=== PATIENT | female | born 1985 | race American Indian/Alaskan Native ===

== ENCOUNTER 2019-08-25 15:15 | Emergency (ER) | payer SELFPAY ==
[2019-08-25 15:24] VITALS: BP 135/92
--- NOTE | 2019-08-25 15:31 | Emergency Department Report ---
Chief Complaint: Urogenital-Female Stated Complaint: DISCHARGE/VAGINAL CHECKUP Time Seen by Provider: 08/25/19 15:25 - HPI History of Present Illness: pt is a 34 yo female who presents with vaginal discharge since 08/22/2019. her cycle just ended on 08/22/2019 and she began feeling the symptoms shortly after. she denies any v/d, fever, no dysuria, no pelvic pain. PMHx none. no allergies to meds. STD hx: trichomonas when she was 17 yo. pt states she is sexually active, partner has STD symptoms as well currently, she had unprotected intercourse. Vitals with mild tachycardia, afebrile, otherwise vitals are normal on exam: Non toxic appearing, no acute distress atraumatic, normocephalic normal appearance of the eyes, PERRL, EOMI, no periorbital edema or ecchymosis moist mucus membranes regular rhythm, no gallops, no rubs, no murmurs breath sounds are clear bilaterally, no w/r/r No abdominal tenderness to palpation, no guarding, no rebound, no distention, no peritoneal signs, normal bowel sounds A&O x4, no focal neuro deficit skin is warm, dry, intact Patient is presenting with vaginal discharge Her partner is experiencing STD-like symptoms and she had unprotected intercourse She is not having fever, pelvic pain, vomiting, diarrhea She has no abdominal tenderness on exam Patient is presenting with a nonmedical emergency at this time, medical screening examination performed and there is no threat to life or limb at this time Patient will be referred to a clinic and the health department for full STD panel and treatment as appropriate Discussed strict return precautions with patient - Exam Vital Signs: Vital Signs 08/25/19 15:23 Temperature 98.0 F Pulse Rate 105 H Respiratory 16 Rate Blood Pressure 135/92 O2 Sat by Pulse 100 Oximetry MSE screening note: Focused history and physical exam performed. ED Disposition for MSE Clinical Impression: Vaginal discharge, Concern about STD in female without diagnosis Disposition: Z- MED SCREENING EXAM-LEFT Is pt being admited?: No Does the pt Need Aspirin: No Condition: Stable Instructions: Sexually Transmitted Diseases (ED), Safe Sex (ED) Additional Instructions: please follow up with a clinic or the health department for a full STD panel and treated as needed. please have partner tested and treated as well. please do not engage in sexual intercourse. return to the emergency room for any new or worsening symptoms. clear medical concepts Address: [address] [place] [address], [place] [address] Referrals: AMISHA SIGALA MD [Staff Physician] - 3-5 Days [facility] [Provider Group] - 3-5 Days [facility] [Outside] - 3-5 Days [facility] [Outside] - 3-5 Days [facility] [Outside] - 3-5 Days Time of Disposition: 15:30 Print Language: SLOVENIAN
== END 2019-08-25 17:46 | disposition left against medical advice (07) ==
LOC: ED 15:15
DX: N89.8 Other specified noninflammatory disorders of vagina (principal); R00.0 Tachycardia, unspecified; Z20.2 Contact with and (suspected) exposure to infections with a predominantly sexual mode of transmission
CPT/HCPCS: 99282